=== PATIENT | male | born 2000 | race Caucasian/White ===

== ENCOUNTER 2024-08-31 06:16 | Day surgery (SDC) | payer OTHER, SELFPAY ==
[2024-08-31] VITALS (10 sets, daily range): BP systolic 106–120; BP diastolic 70–81; PULSE 59–76; RESP 12–16; TEMP 36.1–36.8; O2SAT 97–100; BMI 23.8
--- OUTSIDE RECORDS SUMMARY | 2024-08-31 06:19 | XMS_ITS | Clinical Summary ---
Author Organization [email or web address] [facility] Address [address] [place] [id number] Care Team Providers Care Cognos Name Role Phone Jeny Ag MD Primary Care Provider [phone] Allergies Active Allergy Reactions Criticality Noted Date Comments Amoxicillin Diarrhea,Hives 05/12/2002 Cefuroxime Diarrhea 05/12/2002 Sulfa (Sulfonamide Antibiotics) Hives 01/27 Medications adalimumab 40 mg/0.4 mL pnktIndications :Hidradenitis suppurativa Inject 40 mg subcutaneous once weekly. 4 Each 1 4 Active chlorhexidine (Antiseptic Skin Clnsr,chlorhe,) 4 % external liquidIndicatio ns:Open wound Apply topically to affected area(s) every 12 hours. Cleanse left armpit wound daily 236 mL 2 5 Active cephalexin 500 mg tabletIndicatio ns:Wound infection Take 1 Tablet (500 mg) by mouth three times daily for 14 days. Start taking one week before surgery (Aug 24) and continue one week after surgery. 42 Tablet 5 025 Lactobacillus acidophilus (Probiotic) 10 billion cell capIndications: Antibiotic-asso ciated diarrhea Take by mouth. Take daily while on antibiotics. Do not take at the same time as your antibiotic dose. 14 Capsule 5 025 Active Problems Problem Noted Date Diagnosed Date Hidradenitis suppurativa of left axilla 05/12/20 24 Pilonidal disease 01/17/2016 09/16/2022 Simple tics 04/04/2012 09/16/2022 Headache 02/27/2008 09/16/2022 Overview (09/16/2022): IMO Update 2015 Encounters Date Type Department Care Team Description 08/08/2024 4:15 PM UPHOLSTERY MECHANIC Office Visit [facility] [address] [place] [address] Maryjane Aj MD Consult (Non healing wound left axilla) 08/08/2024 Travel 08/01/2024 3:00 PM UPHOLSTERY MECHANIC Office Visit [facility] [address] [place] [address] Mary Navarrete MD Derm Problem 08/01/2024 Travel 07/29/2024 Travel 06/13/2024 2:40 PM UPHOLSTERY MECHANIC Office Visit [facility] [address] [place] [address] Mary Navarrete MD Derm Problem 06/13/2024 Travel 06/08/2024 Travel from Last 3 Months Immunizations Name Administration Dates Next Due DTaP 04/01/2005, 3,12/22/2002,10/23/2002 ,08/25/2002 HIB PRP-OMP (PedvaxHIB) 06/05/2004 Inactivated Polio Vaccine 02/19/2003,12/22/2002, 10/23/2002,08/25/2002 Influenza, IIV3 (Age 6-35 mos) 06/08/2013 Influenza, IIV3 (Age >=3 years) 06/20/2003 MMR 03/07/2008 Meningococcal Vaccine (Menactra) 03/22/2012 Tdap 03/22/2012 Social History Tobacco Use Types Packs/Day Years Used Date Smoking Tobacco: Never Passive Smoke Exposure: Never Smokeless Tobacco: Never Tobacco Cessation:Counseling Given: Yes Alcohol Use Standard Drinks/Week Comments Never 0 (1 standard drink = 0.6 oz pur e alcohol) PHQ-2 Answer Date Recorded PHQ-2 TOTAL SCORE 3 05/10/2024 Social Connections Answer Date Recorded Do you often feel lonely or isolated from those around you? 4 05/09/2024 Financial Resource Strain Answer Date R ecorded Difficulty of Paying Living Expenses 3 05/09/2024 Difficulty of Paying Living Expenses Not on file 05/09/2024 Food Insecurity Answer Date Recorded Do you worry your food will run out before you are able to buy more? 1 05/09/2024 Transportation Needs Answer Date Record ed Does lack of transportation keep you from medica l appointments? 1 05/09/2024 Does lack of transportation keep you from work, meetings or getting things that you need? 1 05/09/2024 Housing Stability Answer Date Recorded What is your housing situation today? 1 05/09/2024 Utilities Answer Date Recorded Do you have trouble paying f or utilities (for example, heat, electricity, water, phone)? 1 05/09/2024 Sex and Gender Information Value Date Recorded Sex Assigned at Not on file Legal Sex Male 4:54 PM CDT Gender Identity Not on file Sexual Orientation Not on file Obstetrics History Last Filed Vital Signs Vital Sign Reading Time Taken Comments Blood Pressure 110/70 08/08/2024 4:15 PM UPHOLSTERY MECHANIC Pulse 72 08/08/2024 4:15 PM UPHOLSTERY MECHANIC Temperature 36.7 C (98 F) 06/29/2023 4:04 PM UPHOLSTERY MECHANIC Respiratory Rate - - Oxygen Saturation 100% 08/08/2024 4:15 PM UPHOLSTERY MECHANIC Inhaled Oxygen Concentration - - Weight 81.9 kg (180 lb 8 oz) 08/08/2024 4:15 PM UPHOLSTERY MECHANIC Height 185.6 cm (6' 1.07) 05/10/2024 1:13 PM CS T Body Mass Index 23.77 05/10/2024 1:13 PM UPHOLSTERY MECHANIC Plan of Treatment Upcoming Encounters Date Type Department Care Team (Late st Contact Info) Description 08/31/2024 8:00 AM UPHOLSTERY MECHANIC Office Visit [facility] [address] [place] [phone] Maryjane Aj MD [address] [place] [address] 12/04/2024 2:20 PM CDT Office Visit [facility] [address] [place] [address] Mary Navarrete MD [address] [place] [address] Health Maintenance Due Date Last Done Comments COVID-19 vaccine series (#1) 11/18/2004 HPV series for age 9-26 (1 - Risk male 3-dose series) 11/18/2010 HIV for age 15-65 11/18/2014 Hepatitis C screening for ag e 18-79 11/18/2017 Tetanus booster 03/22/2022 03/22/2012 Influenza for age 9-49 02/27/2024 06/20/2003 BMI (ht and wt on same day) for age 18+ 05/10/2025 05/10/2024, 09/16/2022 Depression screening for age 12+ 05/10/2025 05/10/2024, 01/21/2023, 09/16/2022 Tdap Completed 03/22/2012 Pneumococcal series for age 6-49 Aged Out No longer eligible b ased on patient's age to complete this topic Procedures Procedure Name Priority Date/Time Associated Diagnosis Comments AEROBIC BACTERIAL CULTURE, STAIN Routine 08/08/2024 4:58 PM UPHOLSTERY MECHANIC Draining cutaneous sinus tract Open wound from Last 3 Months Results * (ABNORMAL) AEROBIC BACTERIAL CULTURE, STAIN (08/08/2024 4:58 PM UPHOLSTERY MECHANIC) CULTURE RESULT(A) 08/12/2024 10:01 AM UPHOLSTERY MECHANIC [facility] CULTURE 4+ Streptococcus dysgalactiae (Beta Strep group C or G) 08/12/2024 10:01 AM UPHOLSTERY MECHANIC [facility] CULTURE 1+ Mixed aby present 08/12/2024 10:01 AM UPHOLSTERY MECHANIC [facility] GRAM STAIN 1+ PMNs 08/12/2024 10:01 AM UPHOLSTERY MECHANIC [facility] GRAM STAIN 1+ RBCs 08/12/2024 10:01 AM UPHOLSTERY MECHANIC [facility] GRAM STAIN No Epithelial cells 08/12/2024 10:01 AM UPHOLSTERY MECHANIC [facility] GRAM STAIN 1+ Gram Positive Cocci 08/12/2024 10:01 AM UPHOLSTERY MECHANIC [facility] Other (Other) Non-Blood / Unknown 08/08/2024 4:58 PM UPHOLSTERY MECHANIC 08/08/2024 4:58 PM UPHOLSTERY MECHANIC Narrative Organism Antibiotic Method Susceptibility Streptococcus dysgalactiae ( Beta Strep group C or G) PENICILLIN <=0.06: S Streptococcus dysgalactiae ( Beta Strep group C or G) CEFTRIAXONE <=0.12: S Streptococcus dysgalactiae ( Beta Strep group C or G) ERYTHROMYCIN 2: R Streptococcus dysgalactiae ( Beta Strep group C or G) CLINDAMYCIN R Streptococcus dysgalactiae ( Beta Strep group C or G) VANCOMYCIN 0.5: S Streptococcus dysgalactiae ( Beta Strep group C or G) AMPICILLIN <=0.25: S Streptococcus dysgalactiae ( Beta Strep group C or G) CLARITHROMYCIN R Maryjane Aj MD MICROBIOLOGY Final Re sult [facility] [address] [place] [address], from Last 3 Months Insurance [facility] [address] Care Teams Cognos Relationship Specialty Start Date End Date Jeny Ag MD [address] [place] [address] PCP - General Family Practice 05/10/24
--- OUTSIDE RECORDS SUMMARY | 2024-08-31 06:19 | XMS_ITS | Clinical Summary ---
Author Organization [facility] Address [address] [address] Phone Care Team Providers Care Learning And Development Manager Name Role Phone Trena Ohara APRN, DINA Unavailable [phone] Nadia Vallejo APRN, HOUSEKEEPING ROOM ATTENDANT Primary Care Provide r Allergies Active Allergy Reactions Criticality Noted Date Comments Amoxicillin Hives,Diarrhea 05/12/2002 Cefuroxime Diarrhea 05/12/2002 Sulfa Drugs Hives 02/23/2003 Medications * This document contains information received from the source organization and may not represent a complete record from that organization. budesonide (PULMICORT) 90 MCG/ACT InhalerIndicati ons:Acute bronchitis Inhale 2 Puffs into the lungs two times a day. 1 Inhaler 1 2 Active albuterol (PROVENTIL, VENTOLIN) (2.5 MG/3ML) 0.083% nebulizer solutionIndicat ions:Acute bronchitis due to Haemophilus influenzae,Infl uenza A Take 3 mL by nebulization every six hours as needed for Wheezing or Shortness of Breath. 180 mL 1 6 Active albuterol HFA (PROAIR HFA, VENTOLIN HFA) 108 (90 BASE) MCG/ACT inhalation aerosolIndicati ons:Acute bronchitis due to Haemophilus influenzae,Infl uenza A Inhale 1-2 Puffs into the lungs every six hours as needed for Shortness of Breath. Shake before using. 1 Inhaler 1 6 Active Aspirin-Acetami nophen-Caffeine (EXCEDRIN EXTRA STRENGTH OR) Take by mouth. Ac tive SUMAtriptan (IMITREX) 50 MG tablet Take 1 Tab by mouth one time as needed for Migraine for up to 1 dose. Dose may be repeated after 2 hours. Do not exceed 200 mg in 24 hours 12 Tab 6 7 Active Charcoal Activated (ACTIVATED CHARCOAL OR) Take by mouth. Ac tive buPROPion XL (Wellbutrin XL) 300 MG 24 hour extended release tablet Take 1 Tablet by mouth one time a day. Do not crush. 30 Tablet 1 2 Active escitalopram (Lexapro) 10 MG tablet Take 1 Tablet by mouth one time a day. 30 Tablet 1 2 Active hydrOXYzine HCl (Atarax) 25 MG tablet Take 0.5-1 Tablets by mouth three times a day as needed for Anxiety. 60 Tablet 1 2 Active clindamycin (Clindagel) 1 % gelIndications: Rosacea APPLY EXTERNALLY TO THE AFFECTED AREA TWICE DAILY DIRECTED 60 g 2 Active Active Problems Problem Noted Date Diagnosed Date Headache, chronic daily 02/17/2017 Pilonidal disease 01/17/2016 Simple tics 04/04/2012 Headache 02/27/2008 Overview (03/30/2016): IMO Update 2015 Resolved Problems Problem Noted Date Diagnosed Date Resolved Date Asthma 08/08/2002 07/12/2010 Overview (03/30/2016): IMO Update 10 2015 Unspecified otitis media 04/11/2001 Overview (10/16/2011): Recurrent. IMO Update 04/07 Immunizations Name Administration Dates Next Due DTaP <7 years 04/01/2005, 3,12/22/2002,10/23,08/25/2002 Hib PRP OMP (PedvaxHib) 06/05/2004 IPV 02/19/2003, 3,10/23/2002,08/25 Influenza Trivalent With Preservative 06/20/2003 MMR 03/07/2008 Tdap (7 years and older) 03/22/2012 meningococcal MCV4P (Menactra) 03/22/2012 Surgical History Surgery Date Site/Laterality Comments INCISION EARDRUM,ASPIR 05/05/01 Bilateral with tube placement. PILONIDAL CYST EXCISION 01/16/2016 Anus/N/A Procedure: raven ; Surgeon: Jessica Teran MD; Location: [facility] Medical History Medical History Date Comments Unspecified asthma(493.90) 08/08/02 he delacruz s outgrown this. Unspecified otitis media 04/11/01 Recurre nt. Headache(784.0) 02/2008 Simple tics Family History Medical History Relation Comments Allergies Father Allergic rhiniti s. Pulmonary Disease Maternal Aunt Asthma. Relation Status Comments Father Maternal Aunt Social History Tobacco Use Types Packs/Day Years Used Date Smoking Tobacco: Never Smokeless Tobacco: Never Tobacco Cessation:Counseling Given: No Comments:(Non-smoking household) Alcohol Use Standard Drinks/Week Comments No 0 (1 standard drink = 0.6 oz pur e alcohol) Overall Financial Resource Strain (CARDIA) Answe r Date Recorded How hard is it for you to pa y for the very basics like food, housing, medical care, and heating? Not hard at all 08/27/2020 PHQ-2 Answer Date Recorded PHQ-2 Total 3 08/28/2021 Hunger Vital Sign Answer Date Recorded Within the past 12 months, y ou worried that your food would run out before you got the money to buy more. Never true 08/28/19 21 Within the past 12 months, t he food you bought just didn't last and you didn't have money to get more. Never true 08/27/2020 PRAPARE - Transportation Answer Date Re corded In the past 12 months, has l ack of transportation kept you from medical appointments or from getting medications? No 07/2020 In the past 12 months, has l ack of transportation kept you from meetings, work, or from getting things needed for daily living? No 08/27/2020 Sex and Gender Information Value Date Recorded Sex Assigned at Not on file Legal Sex Male 10:49 PM SLITTER PROCESSED FILM Gender Identity Not on file Sexual Orientation Not on file History Length Weight Head Circum Date/Time Gestation Age D/C Weight APGARs Delivery Method Feeding 23 (58.4 cm) 9 lb 6.5 oz (4.267 kg) 15 (38.1 cm) 2000 40 wks 9 lb 6 oz 1min: 8 5mi n: 9 Breast Fed Obstetrics History Last Filed Vital Signs Vital Sign Reading Time Taken Comments Blood Pressure 134/89 07/03/2021 1:09 PM SLITTER PROCESSED FILM Pulse 108 07/03/2021 1:09 PM SLITTER PROCESSED FILM Temperature 36.3 C (97.3 F) 07/03/2021 1:09 PM SLITTER PROCESSED FILM Respiratory Rate 18 03/15/2018 10:45 AM CDT Oxygen Saturation 99% 07/03/2021 1:09 PM SLITTER PROCESSED FILM Inhaled Oxygen Concentration - - Weight 92.7 kg (204 lb 4.1 oz) 07/03/2021 1:09 P M SLITTER PROCESSED FILM Height 188 cm (6' 2) 03/07/2021 3:11 PM CDT Body Mass Index 26.22 03/07/2021 3:11 PM CDT Plan of Treatment Health Maintenance Due Date Last Done Comments HPV Vaccine (Standing Order) (1 - Male 3-dose series) 11/18/2014 Hepatitis B Vaccine (Standing Order) (1 of 3 - 19+ 3-dose series) 11/18/2018 TETANUS (Standing Order) 03/22/2022 012, 04/01/2005, 02/19/2003, Additional history exists COVID-19 Vaccine ( - 2023- season) 2024 Influenza Vaccine Seasonal (Standing Order) (#1) 2024 06/20/2003 PERTUSSIS (Standing Order) Completed 03/22, 04/01/2005, 02/19/2003, Additional history exists Pneumococcal/PCV20 Vaccine: Pediatrics (2-5 yrs) and At-Risk Patients (6-49 yrs) (Standing Order) Aged Out No longer eligible based on patient's age to complete this topic Insurance [facility] [employer] Advance Directives For more information, please contact: [phone] * No Code Status (Latest Code Status on File) Date Activated Date Inactivated Comments 05/23/2002 8:05 AM 05/23/2002 8:05 AM Care Teams Learning And Development Manager Relationship Specialty Start Date End Date Nadia Vallejo APRN, HOUSEKEEPING ROOM ATTENDANT [address] [place] [address] PCP - General Family Medicine 09/24/22 Trena Ohara APRN, HOUSEKEEPING ROOM ATTENDANT [address] [place] [address] SCHOLASTIC APTITUDE TEST GRADER Psychiatry 08/07/21
[2024-08-31] MEDS: LACTATED RINGERS 1000 ML 1,000 ML 100 ML IV (06:45)
[2024-08-31] MEDS: SODIUM CHLORIDE 0.9 % (FLUSH) 10 ML SYRINGE IVF (06:45)
--- NOTE | 2024-08-31 07:22 | PM.GSPRC ---
Operative Note Date of procedure: 08/31/24 Pre-op diagnosis: Left axillary hidradenitis with chronic sinus Post-op diagnosis: Same Type of Procedure: Excision left axillary chronic subcutaneous sinus tract and inflammatory tissue 2x2x3 cm Indications: The patient is a 23-year-old male who for the past year and a half has been dealing with a recurrent infection in his left axilla. This had previously been excised and debrided in clinic. He has been following with dermatology and has been using steroid injections as well as Humira for almost a year, however has not had relief in his symptoms. He returned to clinic and was found to have a chronic draining collection in the axilla. We discussed options and I recommended surgical excision, allowing the wound to heal by primary intention in conjunction with antimicrobial and antibiotic treatment of the bacteria growing from his wound culture. He agreed to proceed. Procedure Description: After discussing the risks and benefits of the procedure, the patient signed informed consent.? The operative site was marked and the patient was brought to the operating room and placed on the operating table in supine position.? Care was taken to pad the patient's pressure points.?? The patient was then given sedation by anesthesia.?? The operative site was then prepped and draped in the usual sterile fashion.? A time-out was then performed. I began by examining the wound. I marked out the areas in the axilla that had scarring and firmness from tunneling. This measured 2 x 3 cm. I then injected 0.5% Marcaine into the skin and subcutaneous tissue around the draining sinus tract. Once this was done I probed the sinus tract. This tract deep and superiorly in the axilla. I incised the skin, exposing the tract. I then, using a scalpel created an incision outside of the disease area and took dissection down using cautery into subcutaneous fat. Care was taken to avoid leaving any of the inflammatory tissue behind. The cavity did track down to the clavipectoral fascia. Once this was completely excised, hemostasis was achieved with cautery. I then excised another rim of skin and scar where he had previously healed, but did have firm inflammatory nodules palpable below. The wound measured 3 cm deep by 3 cm wide by 3.5 cm long. The excised tissue was sent to pathology. It had previously been cultured in clinic. Once this was done, the cavity was scrubbed with PCMX and rinse. Exparel was then injected into the wound edges and base for postoperative pain control. I then obtained a wound VAC and placed it in the wound, with 1 sponge in the wound itself and an additional sponge on the outside of the wound to act as a bridge to keep the camryn pad out of his axilla. I prepped his skin with Betadine to protect from maceration and the wound VAC was applied. Initially there was difficulty getting the wound VAC to hold suction, however after replacing it, I was able to get a good seal that held even with small movements of the patient's arm. The patient was then woken and transported to the recovery area in stable condition. ? The patient tolerated the procedure well. Findings: 1) Chronic axillary sinus tracking to the clavipectoral fascia, 2 cm in depth. 2) Small inflammatory nodules noted in the surrounding hair-bearing tissue, consistent with hidradenitis [place] [facility]: Maryjane Aj MD Estimated blood loss (mL): 5 Additional Specimen Information: Left axillary chronic abscess/sinus Condition: stable Disposition: same day
--- NOTE | 2024-08-31 07:22 | W.PM.H&PU ---
History & Physical Update History & Physical Update H&P Reviewed and patient assessed: No changes noted H&P Updates: Sebastian is here for debridement/excision of a chronic/recurrent left axillary wound. He has held Humira for the past 1.5 weeks and has been taking Cephalexin for the past week (culture grew strep resistant to clindamycin and erythromycin). He has a noted allergy to amoxicillin and cefuroxime but states that this is from childhood and he wasn't sure what his allergy was but as mentioned he has tolerated Cephalexin this week and therefore will plan on [facility] for perioperative prophylaxis.
[2024-08-31] MEDS: CEFAZOLIN 2 GM INJ IVP (07:38)
[2024-08-31] MEDS: BUPIVACAINE 0.25% 30 ML INJECTION (07:50)
[2024-08-31] MEDS: BUPIVACAINE LIPOSOME 133 MG/10 ML INJ INFILTRATI (08:15)
--- NOTE | 2024-08-31 09:04 | P.ANES_ITS ---
Anesthesia Charges Start Date/Time Anesthesia Start Date: 08/31/24 Anesthesia Start Time: 07:26 Stop Date/Time Anesthesia Stop Date: 08/31/24 Anesthesia Stop Time: 09:05 Coding CPT Codes CPT Codes: ANESTH SKIN EXT/PER/ATRUNK - 86076 ([id number]) P1 - NORMAL HEALTHY PATIENT, QK - SHOP DIRECTOR 2-4 CNCRNT ANES PROC, QX - CNC APPLICATIONS ENGINEER SVRebeca W/ MED DIRECTION
--- NOTE | 2024-08-31 09:04 | W.ANESCHARGE ---
Anesthesia Charges Start Date/Time Anesthesia Start Date: 08/31/24 Anesthesia Start Time: 07:26 Stop Date/Time Anesthesia Stop Date: 08/31/24 Anesthesia Stop Time: 09:05 Coding CPT Codes CPT Codes: ANESTH SKIN EXT/PER/ATRUNK - 54159 ([id number]) P1 - NORMAL HEALTHY PATIENT, QK - ASBESTOS ABATEMENT TECHNICIAN 2-4 CNCRNT ANES PROC, QX - CHILD AND FAMILY COUNSELOR SVRebeca W/ MED DIRECTION
--- NOTE | 2024-08-31 09:16 | P.ANES_ITS ---
Anesthesia Charges Start Date/Time Anesthesia Start Date: 08/31/24 Anesthesia Start Time: 07:26 Stop Date/Time Anesthesia Stop Date: 08/31/24 Anesthesia Stop Time: 09:05 Coding CPT Codes CPT Codes: ANESTH SKIN EXT/PER/ATRUNK - 17378 ([id number]) P1 - NORMAL HEALTHY PATIENT, QK - TURNTABLE MAN 2-4 CNCRNT ANES PROC, QX - DICE PERSON SVRebeca W/ MED DIRECTION
--- NOTE | 2024-08-31 09:16 | W.ANESCHARGE ---
Anesthesia Charges Start Date/Time Anesthesia Start Date: 08/31/24 Anesthesia Start Time: 07:26 Stop Date/Time Anesthesia Stop Date: 08/31/24 Anesthesia Stop Time: 09:05 Coding CPT Codes CPT Codes: ANESTH SKIN EXT/PER/ATRUNK - 97408 ([id number]) P1 - NORMAL HEALTHY PATIENT, QK - OPTICAL DISPENSER 2-4 CNCRNT ANES PROC, QX - CARGO OPERATIONS AGENT SVRebeca W/ MED DIRECTION
== END 2024-08-31 11:25 | disposition home or self-care (01) ==
PROVIDERS: Visit Provider Surgery
PROC: (CPT 11450; principal; 2024-08-31 07:30)
DX: L73.2 Hidradenitis suppurativa (principal)
CPT/HCPCS: 11450; 00400; 88304; J0665; J0666; J0690; J1885; J2405; J2704; J3490; J7120